=== PATIENT | male | born 1995 | race Caucasian/White ===

== ENCOUNTER 2023-09-26 14:05 | Emergency (ER) | payer OTHER, SELFPAY ==
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
[2023-09-26 14:08] VITALS: BP 147/72; PULSE 68; RESP 18; TEMP 37.1; O2SAT 100; BMI 19.1
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
[2023-09-26 15:34] VITALS: BP 130/63; PULSE 50; RESP 16; TEMP 37.1; O2SAT 100
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
--- NOTE | 2023-09-26 16:22 | HO.SKINPHOTO ---
Location: face Category: Stage: Length: Width: Depth: cm Location: Category: Stage: Length: Width: Depth: cm Location: Category: Stage: Length: Width: Depth: cm Location: Category: Stage: Length: Width: Depth: cm Location: Category: Stage: Length: Width: Depth: cm Location: Category: Stage: Length: Width: Depth: cm
[2023-09-26] MEDS: Acetaminophen 325 MG TABLET 975 MG PO (17:00)
[2023-09-26] MEDS: Morphine Sulfate Immed Release 15 MG TABLET PO (17:01)
[2023-09-26] MEDS: Diphth,Pertus(ACell),Tet Adult 0.5 ML SYRINGE IM (17:01)
[2023-09-26 17:25] VITALS: BP 121/60; PULSE 53; RESP 15; TEMP 37.2; O2SAT 98
[2023-09-26] MEDS: Bacitracin Oint 0.9 GM PACKET 1 APPL TOPICAL (19:50)
[2023-09-26 20:06] VITALS: BP 112/68; PULSE 62; RESP 18; TEMP 36.6; O2SAT 99
== END 2023-09-26 19:40 | disposition home or self-care (01) ==
PROVIDERS: Emergency Provider Emergency Medicine
DX: S01.81XA Laceration without foreign body of other part of head, initial encounter (principal); S20.212A Contusion of left front wall of thorax, initial encounter; S01.511A Laceration without foreign body of lip, initial encounter; Y04.2XXA Assault by strike against or bumped into by another person, initial encounter; M79.605 Pain in left leg; M79.604 Pain in right leg; K08.89 Other specified disorders of teeth and supporting structures; Y93.9 Activity, unspecified; Y92.9 Unspecified place or not applicable; Y99.9 Unspecified external cause status
CPT/HCPCS: 70450; 70486; 71250; 72125; 90471; 90715; 94010; 99284